=== PATIENT | male | born 2000 | race Caucasian/White ===

== ENCOUNTER → 2022-01-26 13:48 | Outpatient (CLI) | payer OTHER, SELFPAY ==
--- NOTE | 2022-01-26 14:34 | DI.RAD_ITS ---
Exam(s) XR HAND LT COMPLETE EXAM: XR HAND LT COMPLETE CLINICAL HISTORY: PAIN, SWELLINGLT HAND 3RD METACARPAL, INJURY 01/16. TECHNIQUE: 2D digital imaging was performed of the left hand. Four views were obtained. AP, latera l and oblique views were obtained. COMPARISON: No exams were available for comparison FINDINGS: BONES: There is an acute oblique displaced fracture of the midshaft of the 3rd metacarpal. No bony d estructive lesion is seen. JOINTS: No dislocation present. SOFT TISSUE: Normal. IMPRESSION: Acute displaced 3rd metacarpal fracture. DATA REPOSITORY: RADIATION DOSE DELIVERED:
== END ==
PROVIDERS: Visit Provider Physician Assistant
DX: S62.303A Unspecified fracture of third metacarpal bone, left hand, initial encounter for closed fracture (principal); X58.XXXA Exposure to other specified factors, initial encounter
CPT/HCPCS: 73130

== ENCOUNTER 2022-01-31 10:54 | Day surgery (SDC) | payer OTHER, SELFPAY ==
[2022-01-31] VITALS (10 sets, daily range): BP systolic 108–141; BP diastolic 60–82; PULSE 46–57; RESP 14–18; TEMP 36–36.6; O2SAT 96–100; BMI 22.4
--- NOTE | 2022-01-31 11:24 | W.ANESPRE ---
General Info Date of Service Date Performed: 01/31/22 Height: 6 ft Weight: 75 kg Body Mass Index (BMI): 22.4 Surgical Procedure: Operation Date: 01/31/22 12:10 Proposed Procedure Side Surgeon p ORIF 3rd Metacarpal Left Sage Elder MD Meds Allergies and Home Medications Allergies Allergy/AdvReac Type Severity Reaction Status Date / Time dairy Allergy Intermediate Uncoded 01/31/22 11:11 Home Medication Medication Instructions Recorded ibuprofen 200 mg tablet 200 mg PO Q6H PRN 01/31/22 Current Visit Medications: Current Medications Generic Name Dose Route Start Last Admin Trade Name Freq PRN Reason Stop Dose Admin Ringer's Solution 1,000 mls @ 80 mls/hr 01/31/22 06:00 IV 01/31/22 23:59 INFUSION EDWIN Cefazolin Sodium/Dextrose 2 gm in 50 mls @ 100 mls/hr 01/31/22 06:00 Ancef Duplex IVPB 01/31/22 23:59 PREOP EDWIN IV Miscellaneous Supplies 1 each 01/31/22 06:00 Iv Access IV 01/31/22 23:59 DIRECTED EDWIN Sodium Chloride 0 ml 01/31/22 06:00 Normal Saline Flush 10 Ml Syr IV 01/31/22 23:59 PRN PRN Sodium Chloride 0 ml 01/31/22 06:00 Normal Saline 10 Ml Vial IJ 01/31/22 23:59 DIRECTED PRN Sterile Water 0 ml 01/31/22 06:00 Water,Injection,Sterile 10 Ml Vial IJ 01/31/22 23:59 DIRECTED PRN PFSH Active Problems Active Problems: Problem Status Onset Code Fracture of third metacarpal bone of left hand S62.303A Medical History Medical History History of fracture 3rd metacarpal left Surgical History Surgical History H/O wisdom tooth extraction Tobacco Smoking/Tobacco Use Status: Never Alcohol Alcohol Intake: never Substance Use Substance use: Never Substance use type: does not use Vital Signs and Lab Results Vital Signs Most Recent Vital Signs in EMR: Temp Pulse Resp BP Pulse Ox 36.1 C L 57 L 16 141/82 H 100 01/31/22 11:17 01/31/22 11:17 01/31/22 11:17 01/31/22 11:17 01/31/22 11:17 Lab Results Blood Type / Crossmatch: No Data to Display Complete Blood Count: No Data to Display Complete Metabolic Panel: No Data to Display Liver Function Panel: No Data to Display Coagulation Panel: No Data to Display Cardiac Panel: No Data to Display Arterial Blood Gas: No Data to Display Venous Blood Gas: No Data to Display Pancreas Panel: No Data to Display Thyroid Panel: No Data to Display Infectious Disease: No Data to Display Blood Cultures: No Data to Display Toxicology Panel: No Data to Display Anesthesia Assessment and Plan Anesthesia History Personal History: No History of Anesthesia Complications Family History: Family History Unknown Exercise Tolerance Exercise Tolerance: Metabolic Equivalents>4 Cardiac & Pulmonary Exam Cardiac Exam: Normal S1/S2 Heart Sounds Pulmonary Exam: Clear Bilateral Breath Sounds Implantable Cardiac Device Does patient have a Pacemaker or an ICD?: No Airway Exam Known Difficult Airway: No Mallampati Class: 1 Mouth Opening: Normal (> 3cm) Thyromental Distance: Greater than 3 cm Neck Range of Motion: Full ROM Neck Circumference: Normal Teeth Condition: Normal Dentition ASA Classification ASA Score: ASA 1 Emergency Case?: No NPO Status NPO Status: NPO Clears >2 hours, Solids >8 hours Anesthesia Plan Resuscitation Status: Full Code Anesthesia Technique: General Anesthesia Airway Planned: LMA Monitors Used: Standard Monitors Preoperative Comments:: 21 yo male for ORIF 3rd met. Sig PMHx: never smoker, otherwise unremarkable.
[2022-01-31] MEDS: Lactated Ringers 1,000 ML 80 ML IV (11:42)
--- NOTE | 2022-01-31 11:45 | DI.RAD_ITS ---
Exam(s) XR HAND LT LIMITED EXAM: XR HAND LT LIMITED CLINICAL HISTORY: FX THIRD METACARPAL LEFT HAND. TECHNIQUE: 2D and realtime digital imaging was performed. COMPARISON: CR XR HAND LT COMPLETE from 01/26/2022 FINDINGS: Hard copy images show placement of 2 screws across the 3rd metacarpal fracture. The alignment is kareem tomic. Please see procedure note for details. Fluoro time: 19seconds RADIATION DOSE DELIVERED: jose Peres=0.11 mGy
[2022-01-31] MEDS: ceFAZolin 2 GM/50 ML BAG IVPB (12:08)
[2022-01-31] MEDS: Bupivacaine 0.5% Pres-Free 30 ML VIAL (13:13)
--- NOTE | 2022-01-31 14:09 | W.ANESPOSTOP ---
Postoperative Evaluation Date, Time and Location Date Performed: 01/31/22 Time Performed: 14:12 Patient Location: PACU Vital Signs Most Recent Imported Vital Signs: Most Recent Vital Signs Temp Pulse Resp BP Pulse Ox 36.6 C 48 L 17 123/70 99 01/31/22 14:00 01/31/22 14:00 01/31/22 14:00 01/31/22 14:00 01/31/22 14:00 Pain Score Most Recent Pain Score: Most Recent Pain Score Pain Level 3 01/31/22 14:00 Assessment Mental Status: Awake (Alert & Oriented to Patient Baseline) Airway and Respiratory Function: Patent airway with normal (patient baseline) respiratory exam Cardiovascular Function: Hemodynamically Stable Hydration Status: Adequately Hydrated Nausea & Vomiting: No Nausea or Vomiting Pain: Pain is tolerable per patient Peripheral Nerve Block: Patient did not receive a nerve block
[2022-01-31] MEDS: HYDROmorphone 2 MG/ML SYR IVP (14:12)
[2022-01-31] MEDS: Normal Saline 10 ML VIAL IJ (14:12)
--- NOTE | 2022-01-31 14:50 | W.PM.DSUDISC ---
Date of service: 01/31/22 Time of Service: 13:30 Discharge Plan Disposition Patient Disposition: HOME Condition: Good Discharge Details Reason For Visit: Left 3rd MC fracture Attending Provider: Sage Elder Primary Care Provider: No,Local Home Meds and New Rx's Prescriptions: New hydrocodone-acetaminophen 5-325 mg tablet 1 tab PO Q4H PRN (Reason: pain) Qty: 5 0RF acetaminophen 500 mg tablet 500 mg PO Q6H PRN PRN (Reason: pain) Qty: 40 3RF ibuprofen 600 mg tablet 600 mg PO TID PRN (Reason: pain) Qty: 30 3RF Discontinued ibuprofen 200 mg tablet 200 mg PO Q6H PRN Discharge Instructions Additional Instructions: Discharge Instructions Activity: You should keep the hand elevated as much as possible for the first few days. You may use the other fingers as tolerated with the splint on but avoid trying to do too much too soon. You may perform light activities with the splint in place. Dressing/Cast: Your splint should stay in place at all times. Do NOT get it wet for the first week. You may loosen the ANNETTE wrap if you feel it is too tight and then rewrap more loosely. After the first week, you may remove the splint for gentle range of motion of the fingers. After the first week the dressing may get wet and you may replace with a large bandaid. Medications: - You should take Tylenol (max 3000mg per day) and Ibuprofen (max 1800-2400mg per day) for baseline pain control. - You have Hydrocodone for breakthrough pain. - You may apply ice over the back of the hand Follow-up: 02/14/22 If you have any concerns or questions, please call the office ([phone]) during business hours or Dr. Elder's cell ([phone]). Referrals: Sage Elder MD [ [facility] PHYSICIAN] - Equipment/Supplies: Splint Activity:: Elevate Shower/Bathe:: Cover Diet:: As Tolerated Discharge Orders Discharge Orders: Discharge Order (Routine); Ordered 01/31/22 Ordered By: Sage Elder DS: Diagnosis Discharge Diagnosis (1) Fracture of third metacarpal bone of left hand: Status: Acute
--- NOTE | 2022-01-31 19:32 | W.PM.OP ---
Date of service: 01/31/22 Time of Service: 13:15 Operative Note Operative Note DATE OF PROCEDURE: 01/31/22 PRE-OP DIAGNOSIS: Left 3rd Metacarpal Fracture POST-OP DIAGNOSIS: same PROCEDURE: Open Reduction and Internal Fixation of Left 3rd Metacarpal Fracture SURGEON: Sage Elder ANESTHESIA TYPE: General LMA/ETT Refer to Anesthesia Record ESTIMATED BLOOD LOSS: 10 TOURNIQUET TIME: 0 COMPLICATIONS: None Patient was transported to: PACU Patient's condition: stable Implants: #2 - Synthes 2.0mm screws Indications: Evan is a 21-year-old [id number] male who suffered an injury to his left third metacarpal while sliding into a base at baseball. He had notable displacement of the fracture with continued pain and motion at the fracture site and therefore I recommended open reduction internal fixation. I reviewed the risk of the procedure to include bleeding, infection, pain, stiffness, hardware failure, hardware prominence, need for repeat procedures. Despite these risks, he elects to proceed Findings: There is a significantly displaced and shortened third metacarpal fracture. This was reduced with direct visualization and secured with two 2.0 millimeter screws. Procedure Description: Evan was greeted in the preoperative holding area. His identity was confirmed the correct site was identified and marked. The consent was reviewed the patient and signed. History and physical was previously performed earlier in the day. He was taken back to the operating room. The left hand was placed on a hand table. A general anesthetic was administered. Prophylactic antibiotics in the form of cefazolin were given. A timeout was performed for safe surgery. The left hand was prepped ChloraPrep and draped in a standard fashion. The surgical site was anesthetized superficially with 0.5% bupivacaine. A longitudinal incision was made between the third and fourth metacarpals, between the extensor tendons of the 2 digits. This longitudinal incision was made through the skin only. Deeper dissection was performed with a tenotomy scissor dissect away branches of longitudinal veins and nerves. The prominence of the third metacarpal was quite evident. There is also multiple slips of both the third and fourth EDC tendons. The interval between the middle finger and ring finger EDC tendons with created with retraction of the tendons. The periosteum overlying the dorsal ulnar aspect of the third metacarpal shaft was then incised sharply with a knife. Subperiosteal dissection was carried along the metacarpal shaft to expose the fracture site. There is notable dorsal displacement and shortening. A rendon elevator was also utilized to expose the fracture edges. Early hematoma was removed. The fracture was actually with a [place] to fully expose fracture and remove any early callus formation. This was then thoroughly irrigated. With traction and mild rotation, a reduction was performed and it was close but not fully keeing in. However, the addition of relaxation to the anesthetic was necessary to complete the reduction given the amount of shortening present. With relaxation in place, it was reduced and held with a lqldi-yh-eprap reduction clamp and a near anatomic position. X-ray was also used to confirm the reduction as seen visually. I then placed two 2.0 millimeter screws. These were done with lag technique. The first screw was placed proximally by over drilling the near cortex with a 2.0 millimeter drill followed by 1.5 mm drill for the far cortex. This screw was then placed with excellent purchase but not finally tightened. A second screw was placed in similar fashion more distally. The screws were then advanced with excellent purchase and the clamp was removed. They both were finally tightened with excellent compression of the fracture site. Finger motion was checked to make sure there is appropriate positioning of the finger without any new malrotation or angulation. There is no motion of the fracture site with finger motion. Fluoroscopy was also utilized to confirm near anatomic reduction of the fracture fragments and appropriate sized screws. The wound was then thoroughly irrigated. Periosteum and deeper tissues were injected with 0.5% bupivacaine. Periosteum was closed with interrupted #2-0 Vicryl. Subcutaneous tissue was reapproximated with #3-0 Vicryl. Skin was closed with 4-0 subcuticular Monocryl, reinforced with skin glue. Mediplex dressing was applied. He was then placed into a volar resting splint incorporating the index through little finger MCP joints. At the end the case all counts were correct. He is transferred back to PACU in stable condition.
== END 2022-01-31 15:40 | disposition home or self-care (01) ==
PROVIDERS: Visit Provider Student in an Organized Health Care Education/Training Program
PROC: (CPT 26615; principal; 2022-01-31 12:00)
DX: S62.303A Unspecified fracture of third metacarpal bone, left hand, initial encounter for closed fracture (principal); X50.9XXA Other and unspecified overexertion or strenuous movements or postures, initial encounter; X50.1XXA Overexertion from prolonged static or awkward postures, initial encounter; Y93.64 Activity, baseball
CPT/HCPCS: 26615; 73120; J0690; J1100; J1170; J1885; J2405; J2704

== ENCOUNTER 2022-02-14 15:28 | Outpatient (CLI) | payer OTHER, SELFPAY ==
--- NOTE | 2022-02-14 15:20 | DI.RAD_ITS ---
Exam(s) XR HAND LT COMPLETE EXAM: XR HAND LT COMPLETE INDICATION: ORIF L hand. COMPARISON: CR XR HAND LT COMPLETE from 01/26/2022 CR XR HAND LT LIMITED from 01/31/2022 TECHNIQUE: 2D digital imaging was performed. Three views. FINDINGS: Two screws are again noted through the midportion of the 3rd metacarpal for fracture fixation. The a lignment is unchanged. DATA REPOSITORY: RADIATION DOSE DELIVERED:
== END 2022-02-14 15:29 | disposition home or self-care (01) ==
LOC: DIORS 15:28
PROVIDERS: Visit Provider Physician Assistant
DX: S62.393D Other fracture of third metacarpal bone, left hand, subsequent encounter for fracture with routine healing; X58.XXXD Exposure to other specified factors, subsequent encounter
CPT/HCPCS: 73130

== ENCOUNTER 2022-02-28 14:47 | Outpatient (CLI) | payer OTHER, SELFPAY ==
--- NOTE | 2022-02-28 14:15 | DI.RAD_ITS ---
Exam(s) XR HAND LT COMPLETE EXAM: XR HAND LT COMPLETE CLINICAL HISTORY: 3rd metacarpal left hand fx f/u. TECHNIQUE: 2D digital imaging was performed. COMPARISON: CR XR HAND LT COMPLETE from 02/14/2022 FINDINGS: 3 views Again noted is a 2 vertically orientated screws across the fracture site at the midshaft of the 3rd m etacarpal. Fracture line is still evident. No further displacement. There is no obvious callus for mation. No radiographic evidence of osteomyelitis. Bone density remains normal. IMPRESSION: DATA REPOSITORY: RADIATION DOSE DELIVERED:
== END 2022-02-28 14:48 | disposition home or self-care (01) ==
LOC: DIORS 14:47
PROVIDERS: Visit Provider Physician Assistant
DX: S62.393D Other fracture of third metacarpal bone, left hand, subsequent encounter for fracture with routine healing (principal); X58.XXXS Exposure to other specified factors, sequela
CPT/HCPCS: 73130

== ENCOUNTER 2023-06-28 11:48 | Outpatient (CLI) | payer OTHER, SELFPAY ==
--- NOTE | 2023-06-28 08:15 | DI.RAD_ITS ---
Exam(s) XR ELBOW RT COMPLETE EXAM: XR ELBOW RT COMPLETE CLINICAL HISTORY: medial elbow pain. TECHNIQUE: 2D digital imaging was performed. COMPARISON: No exams were available for comparison FINDINGS: 3 views No evidence of fracture nor joint effusion no swelling of the olecranon bursa. Radial head and neck appear unremarkable. Capitellum unremarkable. Epicondyles unremarkable. No loose bodies. No osseo us lesions. Bone density normal IMPRESSION: No acute osseous findings. DATA REPOSITORY: RADIATION DOSE DELIVERED:
== END 2023-06-28 11:49 | disposition home or self-care (01) ==
LOC: DIORS 11:48
PROVIDERS: Visit Provider Physician Assistant
DX: M25.521 Pain in right elbow (principal)
CPT/HCPCS: 73080

== ENCOUNTER → 2023-07-07 00:26 | Outpatient (CLI) | payer OTHER, SELFPAY ==
--- NOTE | 2023-07-07 06:45 | DI.MRI_ITS ---
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 TECHNIQUE: Multiplanar multisequence MRI was performed. COMPARISON: Plain films 28 June 2023 FINDINGS: Elbow joint: No joint effusion Bones: There is no fracture or contusion pattern. Biceps tendon: Intact. No tendinosis. Brachialis tendon: Intact. No tendinosis. Common flexor tendons: Intact. No tendinosis. Common extensor tendons: Intact. No tendinosis. The ulnar collateral ligament appears intact. No surrounding edema. No abnormality seen in the rafael on of the ulnar nerve. Soft tissues: Unremarkable. IMPRESSION: Normal MRI examination of the elbow. DATA REPOSITORY:
== END ==
PROVIDERS: Visit Provider Student in an Organized Health Care Education/Training Program
DX: S54.01XA Injury of ulnar nerve at forearm level, right arm, initial encounter (principal); S53.441A Ulnar collateral ligament sprain of right elbow, initial encounter
CPT/HCPCS: 73221